=== PATIENT | female | born 1975 ===

== ENCOUNTER 2018-08-18 13:53 | Outpatient (REF) | payer MEDICAID, SELFPAY ==
[2018-08-20 10:26] LABS: HIV-1/2 Ag & Ab Screen Negative (NEGAT); Hepatitis B Surface Ag Negative (NEGAT)
[2018-08-20 11:12] LABS: Hepatitis C Ab w Rflx HCV PCR Negative (NEGAT)
[2018-08-20 13:18] LABS: Chlamydia Result Negative; GC Result Negative; Specimen Description CERVIX
[2018-08-20 13:51] LABS: Syphilis Serology (RPR) Negative (Negative)
[2018-08-23 12:12] LABS: HBs Antibody, Quant <3.1 mIU/mL; Hepatitis B Surface Ab Negative
== END 2018-08-18 14:13 ==
LOC: NCHCN 13:53
PROVIDERS: PCP Family Medicine; Visit Provider Nurse Practitioner Family
DX: N89.8 Other specified noninflammatory disorders of vagina (principal); Z11.3 Encounter for screening for infections with a predominantly sexual mode of transmission; Z11.4 Encounter for screening for human immunodeficiency virus [HIV]; Z11.59 Encounter for screening for other viral diseases
CPT/HCPCS: 86706; 86803; 87340; 87389; 87491; 87591; 86592

== ENCOUNTER 2018-10-22 12:40 | Outpatient (REF) | payer MEDICAID, SELFPAY | END 2018-10-22 13:00 | LOC: NCHCN 12:40 | PROVIDERS: PCP Family Medicine; Visit Provider Family Medicine | DX: R63.5 Abnormal weight gain (principal); Z83.49 Family history of other endocrine, nutritional and metabolic diseases | CPT/HCPCS: 84443 ==

== ENCOUNTER 2019-08-02 09:28 | Outpatient (REF) | payer BC, SELFPAY ==
[2019-08-02 22:37] LABS: Abs Immature Grans 0.01 k/cumm (0.0-0.09); Absolute Basophil Count 0.02 k/cumm (0.0-0.2); Absolute Eosinophil Count 0.25 k/cumm (0.0-0.7); Absolute Lymphocyte Count 2.22 k/cumm (1.2-3.4); Absolute Monocyte Count 0.59 k/cumm (0.11-0.7); Absolute Neutrophil Count 4.41 k/cumm (1.2-6.7); Basophils % 0.3; Eosinophils % 3.3; HCT 42.2 % (36.0-46.0); HGB 14.2 g/dL (12.0-15.5); Immature Grans % 0.1 %; Lymphocytes % 29.6; Mean Corp. HGB Concentration 33.6 g/dL (32.0-36.0); Mean Corpuscular Hemoglobin 30.7 pg (27.0-33.0); Mean Corpuscular Volume 91.3 fL (80-95); Mean Platelet Volume 11.1 fL (8.0-11.0); Monocytes % 7.9; Neutrophils % 58.8; Platelet Count 243 x1000/uL (130-400); RBC 4.62 m/cumm (4.00-5.20)
[2019-08-02 23:01] LABS: Anion Gap 6.7 mmol/L (3-11); BUN 7 mg/dL (7-18); C-Reactive Protein 0.27 mg/dL (0.0-0.3); CO2 29.3 mmol/L (21.0-32.0); CREATININE 0.75 mg/dL (0.55-1.02); Calcium 8.7 mg/dL (8.5-10.1); Chloride 105 mmol/L (98-107); Glucose 89 mg/dL (74-106); Potassium 3.9 mmol/L (3.5-5.1); Sodium 141 mmol/L (136-145); Uric Acid 4.4 mg/dL (2.6-6.0)
[2019-08-04 09:57] LABS: Cyclic Citrullinated Peptide <2.5 U/mL (<5.0)
[2019-08-04 11:20] LABS: Rheumatoid Factor <7.5 IU/mL (<12.5)
[2019-08-04 14:04] LABS: ANA Interpretation Negative (Negative)
[2019-08-04 15:18] LABS: Chlamydia Result Negative (Negative); GC Result Negative (Negative)
[2019-08-04 19:16] LABS: C.trach, Misc, Amplified RNA Negative (Negative); N.gonorr, Misc, Amplified RNA Negative (Negative); SOURCE: THROAT
== END 2019-08-02 09:48 ==
LOC: NCHCN 09:28
PROVIDERS: PCP Family Medicine; Visit Provider Nurse Practitioner Family
DX: M25.40 Effusion, unspecified joint (principal); Z11.3 Encounter for screening for infections with a predominantly sexual mode of transmission
CPT/HCPCS: 80048; 86200; 87491; 87591; 84550; 85025; 86038; 86140; 86431